=== PATIENT | female | born 1995 | race Caucasian/White ===

== ENCOUNTER 2024-09-23 18:33 | Outpatient (CLI) | payer BC, SELFPAY | END 2024-09-23 18:34 | disposition home or self-care (01) | LOC: AMB 09-24 10:21 | PROVIDERS: Visit Provider Student in an Organized Health Care Education/Training Program | DX: T40.5X1A Poisoning by cocaine, accidental (unintentional), initial encounter (principal); T43.651A Poisoning by methamphetamines accidental (unintentional), initial encounter; R11.0 Nausea | CPT/HCPCS: A0425; A0427 ==